=== PATIENT | female | born 1970 | race Caucasian/White ===

== ENCOUNTER 2022-10-19 15:00 | Emergency (ER) | payer MEDICAID, SELFPAY ==
[2022-10-19 15:02] VITALS: BP 134/85; PULSE 75; RESP 14; TEMP 37; O2SAT 98
--- NOTE | 2022-10-19 15:33 | W.ED.GENAD ---
Discharge Plan Discharge Details Chief Complaint: RashLesion Primary Care Provider: None,None ED Provider: Orlando Chahal Home Meds and New Rx's Prescriptions: No Action No Known Home Meds Medical Decision Making Patient with what appears to be localized reaction to where the tick bit her. The tick has been removed by the patient. This point I believe that a dose of doxycycline 200 mg single dose as prophylaxis is warranted. I have discussed this with the patient and her . HPI General Date/Time Provider Initiated Documentation: 10/19/22 15:08. HPI Narrative: Patient presents to the emergency room for evaluation of tick bite. She noticed a tick on her right leg approximately 3-1/2 days ago. The tick was removed. There are some localized swelling around the area where the tick was. She has had no fevers no chills. No bull's-eye lesion. Related Data Home Medications Medication Instructions Recorded Confirmed Unknown [No Known Home Meds] 10/19/22 10/19/22 Allergies Allergy/AdvReac Type Severity Reaction Status Date / Time Penicillins AdvReac Mild Skin Rash Unverified 10/19/22 15:07 General Stated Complaint: RashLesion URMILA: 4 Review of Systems Narrative: Constitutional negative for fever and chills. MSK no myalgias or arthralgias skin see HPI neuro no headaches lymph no nodes PFSH Social History Smoking risk assessment performed?: No Exam Narrative Exam Narrative: Awake alert [place] x3 calm no acute distress pleasant cooperative. PERRLA EOMI MMM Supple neck Normal work of breathing Normal cap refill Skin there is 1 area of well-circumscribed rash on the right leg. The rash is approximately 1.5 cm in diameter. No bull's-eye lesion. Mildly elevated. Not warm to the touch. Neuro grossly intact extremities full range of motion normal gait Course Vital Signs Vital signs: Vital Signs Temperature 37 C 10/19/22 15:02 Pulse 75 10/19/22 15:02 Respiratory Rate 14 10/19/22 15:02 Blood Pressure 134/85 10/19/22 15:02 Pulse Oximetry 98 10/19/22 15:02 Temperature 37 C 10/19/22 15:02 Temperature Source Skin 10/19/22 15:02 Pulse 75 10/19/22 15:02 Respiratory Rate 14 10/19/22 15:02 Respiratory Effort Normal 10/19/22 15:07 Blood Pressure 134/85 10/19/22 15:02 Blood Pressure Position Sitting 10/19/22 15:02 Pulse Oximetry 98 10/19/22 15:02 Oxygen Delivery Method Room Air 10/19/22 15:02 Oxygen Flow Rate 0 10/19/22 15:02 Pain Level 0 10/19/22 15:02
[2022-10-19] MEDS: Doxycycline Hyclate 100 MG CAP 200 MG PO (16:02)
[2022-10-19 16:03] VITALS: BP 134/85; PULSE 75; RESP 14; TEMP 37; O2SAT 98
== END 2022-10-19 15:59 | disposition home or self-care (01) ==
PROVIDERS: Emergency Provider Emergency Medicine
DX: S80.861A Insect bite (nonvenomous), right lower leg, initial encounter (principal); W57.XXXA Bitten or stung by nonvenomous insect and other nonvenomous arthropods, initial encounter
CPT/HCPCS: 99283

== ENCOUNTER 2023-10-22 15:19 | Outpatient (REF) | payer MEDICAID, SELFPAY | END 2023-10-22 15:20 | disposition home or self-care (01) | LOC: LBN 15:19 | PROVIDERS: Visit Provider Physician Assistant | DX: J02.9 Acute pharyngitis, unspecified (principal) | CPT/HCPCS: 87070 ==

== ENCOUNTER 2023-11-12 07:56 | Emergency (ER) | payer MEDICAID, SELFPAY ==
--- NOTE | 2023-11-12 | DI.RAD_ITS ---
Exam(s) XR CHEST 2V PA LATERAL EXAM: XR Chest TECHNIQUE: 2D digital imaging was performed of the chest. Two images were obtained. PA and lateral views were obtained. COMPARISON: No exams were available for comparison FINDINGS: MEDIASTINUM: Normal. HEART: Normal. PULMONARY VASCULATURE: Normal. LUNGS: Clear. PLEURAL SPACE: No pleural effusion or pneumothorax. BONE:Within normal limits for the patient's age. OTHER FINDINGS:Normal. IMPRESSION: No acute pulmonary findings. DATA REPOSITORY: RADIATION DOSE DELIVERED:
--- NOTE | 2023-11-12 10:45 | RT.EKG_ITS ---
APPROVED REPORT Exam: Resting ECG Reason for Exam: sob Patient Location: E HR:78 bpm ECG Measurements Heart Rate 78 AXIS NM 150 P 16 QRSd 81 QRS 49 QT 369 T 44 QTc 421 Conclusion sinus [address] changes no stemi
--- NOTE | 2023-11-12 11:15 | W.EDPROG ---
Date of service: 11/12/23 Time of Service: 11:15 Medical Decision Making Patient visit occurred during EMR downtime. Please see paper chart for details. Quality:SDOH Health Related Social Needs: No Data to Display Discharge Plan Disposition Patient Disposition: Home Condition: Stable Discharge Details Clinical Impression: Viral URI with cough Primary Care Provider: Unknown,Unknown ED Provider: Deanna Light Home Meds and New Rx's Prescriptions: No Action prednisone 20 mg tablet 40 mg PO DAILY Qty: 10 0RF Rx Instructions: take in the morning with food. take 2 pills daily x 5 days Discharge Instructions Additional Instructions: DC home with promethazine syrup, tessalon pearles, albuterol MDI
--- NOTE | 2023-11-12 17:38 | NUR.NOTE ---
[facility] there was no [facility] on them. Per Steven Rodriguez, I called the pharmacy and gave them the date of the prescriptions. They will fill them. Called the back and he is aware. Christopher [phone] Nursing Note:
== END 2023-11-12 11:16 | disposition home or self-care (01) ==
PROVIDERS: Emergency Provider Emergency Medicine
DX: J06.9 Acute upper respiratory infection, unspecified (principal); B97.89 Other viral agents as the cause of diseases classified elsewhere; R05.9 Cough, unspecified
CPT/HCPCS: 00123; 93005; 94640; 99285; 71046; 93010; 99284